=== PATIENT | male | born 1940 | race Caucasian/White ===

== ENCOUNTER → 2019-02-12 | Outpatient (CLI) | payer MEDICARE, OTHER ==
[2019-02-12 13:49] LABS: BLOOD UREA NITROGEN 14 MG/DL (7-18); CARBON DIOXIDE LEVEL 31 MEQ/L (21-32); CHLORIDE LEVEL 103 MEQ/L (98-107); CREATININE FOR GFR 1.01 MG/DL (0.70-1.30); GLOMERULAR FILTRATION RATE > 60.0 (>42); GLUCOSE, FASTING 80 MG/DL (70-100); POTASSIUM SERUM 4.3 MEQ/L (3.5-5.1); SODIUM LEVEL 139 MEQ/L (136-145)
== END ==
LOC: M SMT 11:40
PROVIDERS: ATTEND Nurse Practitioner Women's Health
DX: R31.0 Gross hematuria (principal)

== ENCOUNTER → 2019-02-12 | Outpatient (REF) | payer MEDICARE ==
[2019-02-12 13:42] LABS: APPEARANCE, URINE CLEAR (CLEAR); BACTERIA, URINE AUTO NEGATIVE (NEGATIVE); BILIRUBIN, URINE AUTO NEGATIVE (NEGATIVE); BLOOD, URINE BLOOD 2+ (NEGATIVE); COLOR, URINE STRAW (YELLOW); GLUCOSE, URINE (UA) AUTO NEGATIVE (NEGATIVE); KETONE, URINE AUTO NEGATIVE (NEGATIVE); LEUKOCYTE ESTERASE, URINE AUTO NEGATIVE (NEGATIVE); NITRITE, URINE AUTO NEGATIVE (NEGATIVE); PROTEIN, URINE AUTO NEGATIVE (NEGATIVE); RBC, URINE AUTO 2 /HPF (0-3); SPECIFIC GRAVITY URINE AUTO 1.003 (1.002-1.035); SQUAMOUS EPITHELIAL CELL UR AU 0 /HPF (0-6); UROBILINOGEN, URINE AUTO 0.2 mg/dL (0.0-2.0); WBC, URINE AUTO 0 /HPF (0-3)
== END ==
LOC: M SMT 13:21
PROVIDERS: ATTEND Nurse Practitioner Women's Health
DX: R31.9 Hematuria, unspecified (principal)
CPT/HCPCS: 36415; 80048; 81001; 87086; 88108; G0463

== ENCOUNTER → 2019-02-16 | Outpatient (CLI) | payer MEDICARE, OTHER ==
[~2019-02-16] MED LIST: ISOVUE-370 76% 100ML VIAL (Q9967) As Ordered ONE
--- NOTE | 2019-02-16 09:43 | REP ---
CT of the abdomen and pelvis CT urogram protocol without and with IV contrast: There are no comparison studies. The visualized lung bravo are unremarkable. There is pericardial calcification, likely sequela of previous pericarditis. There is a nonobstructive left renal calcification at the lower pole posteriorly measuring 8 mm. There are two tiny nonobstructive left renal calculi at the lower pole anteriorly each measuring approximately 2 mm in diameter. There are no right renal calculi. There are no ureteral calculi. There are no bladder calculi. There is no hydronephrosis. There are a few small Bosniak type 1 renal simple cysts bilaterally. There are no solid renal masses. There are no bladder masses. There is bilateral diffuse renal cortical atrophy. The prostate is moderately enlarged and slightly effaces the bladder base. The the patient has a cholecystectomy and appendectomy. The the hepatic parenchyma is homogeneous. There is mild diffuse biliary duct dilatation, likely a consequence of cholecystectomy. The pancreas and spleen are unremarkable. The adrenals are unremarkable. Abdominal aorta are unremarkable except for occasional calcified atheroma. There is no periaortic adenopathy or mass. The there is no bowel distension or obstruction. The mesentery is unremarkable. There is sigmoid colon diverticulosis. There is no CT evidence of diverticulitis. There is no ascites. There is no adenopathy. Impression: There are nonobstructive left renal calculi as described. There are no right renal calculi. No ureteral calculi. There is no hydronephrosis. No bladder calculi. There is bilateral renal cortical atrophy. There are no solid renal masses. There are multiple small bilateral renal simple cysts. There is no bladder mass. Pericardial calcification, likely sequela of pericarditis. Cholecystectomy and appendectomy. No adenopathy or ascites. Prostate is moderately enlarged and effaces the bladder base. Electronically Signed by Brian Key MD 02/16/2019 09:35 A
== END ==
LOC: M RAD 07:47 → EDUNIT# 08:30
PROVIDERS: ATTEND Nurse Practitioner Women's Health
DX: R31.9 Hematuria, unspecified (principal)
CPT/HCPCS: 74178; Q9967

== ENCOUNTER 2022-04-28 09:34 | Emergency (ER) | payer MEDICARE, OTHER ==
[~2022-04-28] VITALS: Ht 180.3 cm; Wt 86.4 kg
[2022-04-28] MEDS ORDERED: NS 500 ML IV ONE (11:40)
[2022-04-28] MEDS ORDERED: KETOROLAC 30 MG/ML 1ML VIAL IV ONE (11:40)
[2022-04-28] MEDS ORDERED: ONDANSETRON 4MG 2ML VIAL IV ONE (11:40)
[2022-04-28 11:41] LABS: BASO % 0.5 % (0.0-1.0); EOS # 0.2 10^3/uL (0.0-0.5); EOS % 2.8 % (0.0-3.0); HEMATOCRIT 44.6 % (42.0-52.0); HEMOGLOBIN 15.7 g/dl (13.5-17.5); LYMPH # 1.7 10^3/uL (1.5-5.0); LYMPH % 20.2 % (24.0-44.0); MEAN CORPUSCULAR HEMOGLOBIN 34.5 pg (27.0-33.0); MEAN CORPUSCULAR HGB CONC 35.2 g/dl (32.0-36.5); MONO # 0.9 10^3/uL (0.0-0.8); MONO % 11.4 % (2.0-8.0); NEUTROPHILS # 5.3 10^3/uL (1.5-8.5); NEUTROPHILS % 64.5 % (36.0-66.0); PLATELET COUNT, AUTOMATED 132 10^3/uL (150-450); RED BLOOD COUNT 4.55 10^6/uL (4.30-6.10); WHITE BLOOD COUNT 8.2 10^3/uL (4.0-10.0)
[2022-04-28 12:10] LABS: ALBUMIN 3.4 GM/DL (3.2-5.2); BILIRUBIN,DIRECT 0.3 MG/DL (0.0-0.2); BILIRUBIN,TOTAL 1.1 MG/DL (0.2-1.0); TOTAL PROTEIN 6.7 GM/DL (6.4-8.2)
[2022-04-28] MEDS ORDERED: ONDA4TAB6 PO (13:34)
[2022-04-28 13:49] VITALS: BP 139/69
== END 2022-04-28 13:50 | disposition home or self-care (01) ==
LOC: M ED 09:34
DX: N20.0 Calculus of kidney (principal); I25.2 Old myocardial infarction; I10 Essential (primary) hypertension
CPT/HCPCS: 74176; 80047; 80076; 81001; 83690; 85025; 87086; 96361; 96374; 96375; 99284; J1885; J2405